=== PATIENT | female | born 1990 | race Caucasian/White ===

== ENCOUNTER 2017-03-14 21:00 | Emergency (ER) | payer OTHER ==
[2017-03-14 21:20] VITALS: BP 136/79; PULSE 87; RESP 20; TEMP 98.3; O2SAT 100
[2017-03-14 21:21] LABS: APPEARANCE,URINE Cloudy; BILIRUBIN,URINE NEGATIVE (NEGATIVE); COLOR,URINE Dark yellow; GLUCOSE, URINE (UA) NEGATIVE (NEGATIVE); KETONES,URINE NEGATIVE (NEGATIVE); LEUKOCYTE ESTERASE ,URINE 2+ (NEGATIVE); NITRATE,URINE NEGATIVE (NEGATIVE); OCCULT BLOOD,URINE 3+ (NEG-TRACE); PH,URINE 5.5
[2017-03-14 21:36] LABS: RBC,URINE 100-120 (0-3AV/HPF)
[2017-03-14 21:37] LABS: WBC,URINE 50-75 (0-5AV/HPF)
[2017-03-14] MEDS ORDERED: SULFAMETHOXAZOLE/TRIMETHOPRI 800/160 MG PO ONE (21:43)
[2017-03-14] MEDS ORDERED: SULFAMETHOXAZOLE/TRIMETHOPRI 800/160 MG ONE (21:54)
== END 2017-03-14 22:12 | disposition home or self-care (01) ==
LOC: ED 21:00
DX: N30.00 Acute cystitis without hematuria (principal)
CPT/HCPCS: 81001; 87088; 99282; 99283

== ENCOUNTER 2017-04-09 17:33 | Emergency (ER) | payer OTHER ==
[2017-04-09] MEDS ORDERED: SODIUM CHLORIDE 0.9% FLUSH 10 ML SOL IV PRN (17:43)
[2017-04-09] MEDS ORDERED: SODIUM CHLORIDE 0.9% 1000ML 1,000 ML IV ONE (17:43)
[2017-04-09 17:54] VITALS: RESP 18; O2SAT 98
[2017-04-09 18:02] LABS: BASOPHILS % (AUTO) 0 % (0-3); EOSINOPHILS % (AUTO) 0 % (0-9); HEMATOCRIT 37 % (35-47); MEAN CORPUSCULAR HGB CONC 36.8 gm/dl (32.0-36.0); MONOCYTES % (AUTO) 5.6 % (0-12); NEUTROPHILS % (AUTO) 73.6 % (37-80)
[2017-04-09 18:04] LABS: MEAN CORPUSCULAR VOLUME 81 fL (81-99)
[2017-04-09 18:12] LABS: ALBUMIN 3.4 gm/dl (3.4-5.0); CALCIUM 8.7 mg/dl (8.5-10.1); POTASSIUM 3.7 mMol/L (3.5-5.1)
[2017-04-09 18:34] VITALS: BP 129/86; PULSE 84; TEMP 98.6
== END 2017-04-09 19:12 | disposition home or self-care (01) | DRG 552 ==
LOC: ED 17:33
DX: M54.2 Cervicalgia (principal); Z04.1 Encounter for examination and observation following transport accident; V49.40XA Driver injured in collision with unspecified motor vehicles in traffic accident, initial encounter
CPT/HCPCS: 36415; 70450; 71010; 72125; 80053; 85025; 93005; 99285